=== PATIENT | male | born 1930 | race Caucasian/White ===

== ENCOUNTER 2018-09-22 12:15 | Emergency (ER) | payer OTHER ==
[~2018-09-22] VITALS: Ht 172.7 cm; Wt 95.3 kg
[2018-09-22] MEDS ORDERED: TDAP [DIPH/PERTUSSIS/TET] 0.5 ML VIAL IM ONE ×2 (12:27→12:30)
[2018-09-22 12:29] LABS: BASOPHILS % (AUTO) 0.6 % (0.0-2.0); HEMATOCRIT 48 % (39-51); HEMOGLOBIN 16.2 g/dL (13.5-17.5); LYMPHOCYTES # (AUTO) 1.3 /CMM (0.8-4.8); LYMPHOCYTES % (AUTO) 20.3 % (20.0-44.0); MEAN CORPUSCULAR HGB CONC 34 g/dl (31.0-36.0); MEAN CORPUSCULAR VOLUME 94 fL (80-96); MONOCYTES # (AUTO) 0.6 /CMM (0.1-1.30); MONOCYTES % (AUTO) 9.2 % (2.0-12.0); NEUTROPHILS # (AUTO) 4.6 /CMM (1.8-8.9); NEUTROPHILS % (AUTO) 68.9 % (43.0-81.0); PLATELET COUNT (AUTO) 227 /CMM (150-450); RED BLOOD CELL COUNT(AUTO) 5.12 MIL/uL (4.5-6.0); WHITE BLOOD COUNT (AUTO) 6.6 K/uL (4.3-11.0)
[2018-09-22] MEDS ORDERED: IV NS 0.9% 500 ML BAG IV ONE (12:30)
--- NOTE | 2018-09-22 12:37 | NUR ---
PT BR[facility]GHT IN [facility] [address] PT FAINTED WHILE WALING THEN BECAME DISORIENTED. PT CURRENTLY ALERT WITH ORIENTATION X 3 NO NOTED WEAKNESS OBSERVED PIV STARTED AND GIVEN FLUID BOLUS. WILL CONTINUE TO MONITOR
[2018-09-22 12:39] LABS: CALCIUM, SERUM 8.6 mg/dL (8.5-10.1); CARBON DIOXIDE 24 mmol/L (21-32); CHLORIDE 105 mmol/L (98-107); CREATININE 1.2 mg/dL (0.6-1.3); GLUCOSE 117 mg/dL (74-106); POTASSIUM 4.4 mmol/L (3.5-5.1); SODIUM SERUM 136 mmol/L (136-145); UREA NITROGEN, BLOOD 28 mg/dL (7-18)
[2018-09-22 12:45] LABS: ALANINE AMINOTRANSFERASE 25 U/L (12-78); ALBUMIN 3.5 g/dL (3.4-5.0); ALKALINE PHOSPHATASE 85 U/L (46-116); ASPARTATE AMINOTRANSFERASE 19 U/L (15-37); BILIRUBIN,DIRECT 0.1 mg/dL (0.0-0.2); BILIRUBIN,TOTAL 0.4 mg/dL (0.2-1.0); TOTAL PROTEIN, SERUM 6.9 g/dL (6.4-8.2)
[2018-09-22] MEDS ORDERED: LEVO75TA7 PO (12:56)
[2018-09-22] MEDS ORDERED: SIMV10TA6 PO (12:56)
--- NOTE | 2018-09-22 13:07 | NUR ---
CALLED [facility]-INITIAL CALL
--- NOTE | 2018-09-22 13:10 | NUR ---
Vannessa talamantes in [facility] - 09/22/18 at 1600 by LIGIA PT GOING TO [facility] PHONE NUMBER [phone]
[2018-09-22] MEDS ORDERED: CT SWABBABLE VALVE TRANS SET 1 EA INFUS.SET MC ONE (13:18)
[2018-09-22] MEDS ORDERED: IV NS 0.9% 250 ML IV ONE (13:18)
[2018-09-22] MEDS ORDERED: IOHEXOL-350 100 ML VIAL IV ONE (13:18)
--- NOTE | 2018-09-22 14:40 | NUR ---
CALLED RADIOLOGY FOR CD COPY OF TESTS PT TRANASFERING TO [facility]
--- NOTE | 2018-09-22 15:03 | NUR ---
Pt accepted to [facility] ED Accepting MD is Dr. Adame Number for report is [phone] ETA for ALS transport is 1600
--- NOTE | 2018-09-22 16:10 | NUR ---
CALLED [facility] ED AT 1554 PLACED ON HOLD WILL CALL BACK
--- NOTE | 2018-09-22 16:33 | NUR ---
CALLED FOR RN REPORT SPEAKING TO STEF. Accepting MD is Dr. Adame Number for report is [phone] ETA for ALS transport is 1600 PT TRANSFERRIG TO [facility]
--- NOTE | 2018-09-22 17:08 | NUR ---
PT ATE SNACK BEFORE DISCHARGE PT DISCHARGE TO [id number] LEAVING FOR [facility] ED
[2018-09-22 17:10] VITALS: BP 130/72
== END 2018-09-22 17:10 | disposition short-term general hospital (02) ==
LOC: ER 12:16
DX: R55 Syncope and collapse (principal); S80.02XA Contusion of left knee, initial encounter; S80.01XA Contusion of right knee, initial encounter; S20.319A Abrasion of unspecified front wall of thorax, initial encounter; S00.01XA Abrasion of scalp, initial encounter; S30.811A Abrasion of abdominal wall, initial encounter; S60.812A Abrasion of left wrist, initial encounter; E07.9 Disorder of thyroid, unspecified; I45.10 Unspecified right bundle-branch block; Z79.899 Other long term (current) drug therapy; W19.XXXA Unspecified fall, initial encounter; Y93.89 Activity, other specified; Y92.89 Other specified places as the place of occurrence of the external cause; Y99.8 Other external cause status
CPT/HCPCS: 36415; 70450-TC; 71045-TC; 80048-TC; 80076-TC; 82962-TC; 84484-TC; 85025-TC; 85730-TC; 90715; J7040; J7050; Q9967